=== PATIENT | male | born 1990 | race Caucasian/White ===

== ENCOUNTER 2021-06-26 21:37 | Emergency (ER) ==
[~2021-06-26] VITALS: Ht 182.9 cm; Wt 83.6 kg
== END 2021-06-26 22:38 | disposition left against medical advice (07) ==
LOC: COL.ER 21:37
DX: R07.0 Pain in throat (principal)

== ENCOUNTER 2021-07-24 11:43 | Emergency (ER) | payer OTHER ==
[~2021-07-24] VITALS: Ht 182.9 cm; Wt 81.8 kg
[2021-07-24 11:46] VITALS: TEMP 98.2
[2021-07-24 12:10] LABS: BASO % 0.4 % (0.0-2.0); EOS # 0.1 (0.0-0.7); EOS % 0.9 % (0-4.0); GRAN # 6.8 (1.4-6.5); GRAN % 71.3 % (42.2-75.2); HEMATOCRIT 44.8 % (42.0-52.0); HEMOGLOBIN 15.4 g/dl (13.5-18.0); LYMPH # 1.9 (1.2-3.4); LYMPH % 20.4 % (20.0-51.0); MEAN CELL VOLUME 94 fl (80.0-100.0); MEAN CORPUSCULAR HEMOGLOBIN 32 pg (27.0-31.0); MEAN CORPUSCULAR HGB CONC 34 g/dl (33.0-37.0); MEAN PLATELET VOLUME 11.1 fl (7.4-10.4); MONO # 0.6 (0.1-0.6); MONO % 6.6 % (1.7-9.3); PLATELET COUNT 249 K/mm3 (130-400); RED BLOOD COUNT 4.78 M/mm3 (4.20-5.60); REDCELL DISTRIBUTION WIDTH-CV 12.4 % (11.5-14.5)
[2021-07-24 12:18] LABS: ALANINE AMINOTRANSFERASE 15 U/L (4-49); ALBUMIN 4.7 gm/dL (3.5-5.0); ALCOHOL(ethanol),MEDICAL < 10 mg/dL; ALKALINE PHOSPHATASE 91 U/L (50-136); ANION GAP 7 mmol/L (7-16); AST,SGOT 25 U/L (15-37); BILIRUBIN,TOTAL 0.6 mg/dL (0.0-1.0); BLOOD UREA NITROGEN 11 mg/dL (9-20); CALCIUM 9.6 mg/dL (8.4-10.2); CARBON DIOXIDE 28 mmol/L (22-30); CHLORIDE 106 mmol/L (98-107); CREATININE, serum 0.82 (0.66-1.25); GLUCOSE 95 mg/dL (74-106); POTASSIUM 4.5 mmol/L (3.4-5.0); SODIUM 141 mmol/L (137-145); TOTAL PROTEIN 7.6 gm/dL (6.4-8.2)
[2021-07-24 13:59] VITALS: BP 101/52; PULSE 57
== END 2021-07-24 14:06 | disposition home or self-care (01) ==
LOC: COL.ER 11:43
PROVIDERS: Emergency Medicine
DX: R41.82 Altered mental status, unspecified (principal)
CPT/HCPCS: J1953; J2060; J7030

== ENCOUNTER 2021-07-25 12:30 | Observation (INO) | payer OTHER ==
[2021-07-25] VITALS (291 sets, daily range): BP systolic 132–138; BP diastolic 64–80; PULSE 74–84; TEMP 98–98.7; O2SAT 92–100
[~2021-07-25] VITALS: Ht 182.9 cm; Wt 73.8 kg
[2021-07-25 12:43] LABS: BASO # 0.1 (0.0-0.2); BASO % 0.7 % (0.0-2.0); EOS # 0.1 (0.0-0.7); GRAN # 4.5 (1.4-6.5); GRAN % 59.2 % (42.2-75.2); HEMATOCRIT 42.8 % (42.0-52.0); HEMOGLOBIN 14.8 g/dl (13.5-18.0); LYMPH # 2.3 (1.2-3.4); LYMPH % 30.5 % (20.0-51.0); MEAN CELL VOLUME 92 fl (80.0-100.0); MEAN CORPUSCULAR HEMOGLOBIN 32 pg (27.0-31.0); MEAN CORPUSCULAR HGB CONC 35 g/dl (33.0-37.0); MONO # 0.6 (0.1-0.6); MONO % 8.3 % (1.7-9.3); PLATELET COUNT 243 K/mm3 (130-400); RED BLOOD COUNT 4.68 M/mm3 (4.20-5.60); REDCELL DISTRIBUTION WIDTH-CV 12.6 % (11.5-14.5)
[2021-07-25 12:49] LABS: COLLECTION METHOD CATHETER
[2021-07-25 12:52] LABS: ALBUMIN 4.6 gm/dL (3.5-5.0); BILIRUBIN,TOTAL 0.4 mg/dL (0.0-1.0); CALCIUM 9.3 mg/dL (8.4-10.2); CREATININE, serum 0.85 (0.66-1.25); POTASSIUM 4.2 mmol/L (3.4-5.0); TOTAL PROTEIN 7.3 gm/dL (6.4-8.2)
[2021-07-25 12:58] LABS: PH 5 (5-8); SQUAMOUS EPITHELIAL 0-2 /hpf; URINE APPEARANCE Clear; URINE BACTERIA Rare /hpf; URINE BILIRUBIN Negative (NEGATIVE); URINE BLOOD 1+ (NEGATIVE); URINE COLOR Straw; URINE GLUCOSE Negative (NEGATIVE); URINE KETONE Negative (NEGATIVE); URINE LEUKOCYTE ESTERASE Negative (NEGATIVE); URINE NITRATE Negative (NEGATIVE); URINE PROTEIN(semi-quant) Negative (NEGATIVE); URINE RBC 0-2 /hpf; URINE UROBILINOGEN Negative (NEGATIVE)
[2021-07-25 12:59] LABS: ARTERIAL BLD GAS O2 SATURATION 96.6 % (92-100); ARTERIAL BLD GAS TCO2 CT 24.5; ARTERIAL BLOOD GAS BASE EXCESS -1.2 (-2-2); ARTERIAL BLOOD GAS HCO3 23.3 meq/L (22-26); ARTERIAL BLOOD GAS PCO2 38.7 mmHg (35-45); ARTERIAL BLOOD GAS PO2 83.4 mmHg (80-100)
[2021-07-25 13:06] LABS: TRICYCLIC ANTIDEPRESS URINE NEGATIVE
--- NOTE | 2021-07-25 18:06 | NUR ---
AT 1744 PATIENT STARTED HAVING SEIZURE ACTIVITY, NON EPILEPTIC SEIZURE. PATIENT WAS PLACED ON HIS RIGHT LATERAL SIDE AND PLACED FLAT IN THE BED. AT 1747 2 MG ATIVAN VIA PERIPHERAL IV LEFT FOREARM WAS GIVEN. AT 1750 THE PROFESSIONAL DEVELOPMENT DIRECTOR HOSPITALIST WAS NOTIFIED. AT 1751 THE PATIENT STARTED TO ORIENTATE AND FOLLOW COMMANDS. PATIENT DID NOT KNOW THAT HE HAD SEIZURE ACTIVITY. PATIENT IS AGAIN RESTING COMFRTABLY IN THE BED, WILL CONTINUE TO MONITOR
--- NOTE | 2021-07-25 19:00 | NUR ---
PT C/O RESTLESS LEGS AND THE BACK PARTS OF BILATERAL THIGHS ARE ACHING AND REALL BOTHERING HIM. WARM BLANKET PROVIDED. SPOKE TO CORI LINDA AND PROVIDER STATES WILL PLACE ORDERS FOR SOMETHING TO HELP HIS LEGS OUT. AWAITING NEW ORDER. YOUNG DAVID COMING ON SHIFT AWARE TO MONITOR FOR ORDERS.
[2021-07-26] VITALS (465 sets, daily range): BP systolic 114–150; BP diastolic 64–78; PULSE 44–84; TEMP 97.6–98.9; O2SAT 69–100
[2021-07-26 05:05] LABS: BASO # 0.1 (0.0-0.2); BASO % 0.9 % (0.0-2.0); EOS # 0.2 (0.0-0.7); EOS % 3.4 % (0-4.0); GRAN # 2.5 (1.4-6.5); GRAN % 42.8 % (42.2-75.2); HEMATOCRIT 40.9 % (42.0-52.0); HEMOGLOBIN 14.1 g/dl (13.5-18.0); LYMPH # 2.4 (1.2-3.4); LYMPH % 41.1 % (20.0-51.0); MEAN CELL VOLUME 92 fl (80.0-100.0); MEAN CORPUSCULAR HEMOGLOBIN 32 pg (27.0-31.0); MEAN CORPUSCULAR HGB CONC 35 g/dl (33.0-37.0); MEAN PLATELET VOLUME 11.1 fl (7.4-10.4); MONO # 0.7 (0.1-0.6); MONO % 11.6 % (1.7-9.3); PLATELET COUNT 248 K/mm3 (130-400); RED BLOOD COUNT 4.44 M/mm3 (4.20-5.60); REDCELL DISTRIBUTION WIDTH-CV 12.6 % (11.5-14.5)
[2021-07-26 05:14] LABS: CALCIUM 9.4 mg/dL (8.4-10.2); CREATININE, serum 0.85 (0.66-1.25)
--- NOTE | 2021-07-26 07:00 | NUR ---
RECEIVED REPORT FROM YOUNG DAVID. PT RESTING IN BED ON RA. VSS. CALL LIGHT WITHIN REACH. POLICE OFFICE REMAINS AT BEDSIDE.
--- NOTE | 2021-07-26 09:00 | NUR ---
SPOKE TO DR MARTIN ABOUT EEG RESULTS AND PT HAVING SEIZURE DURING PROCEDURE BUT WAS ABLE TO RESOLVE ON HIS OWN. VSS DURING. PROVIDER REQUESTS PROLACTIN LEVEL NOW. SEE RESULTS. VSS. BREAKFAST TRAY PROVIDED TO PT. CROP PEST CONTROL SPECIALIST REMAINS AT BEDSIDE.
--- NOTE | 2021-07-26 09:23 | NUR ---
PATIENT BEGAN HAVING SEIZURE DURING PHOTONIC STAGE OF EEG STARTING AT 0847 AND ENDING IS M3 AT 0852. RN AND WAS NOTIFIED OF SEIZURE.
--- NOTE | 2021-07-26 15:56 | NUR ---
Patient is in custody at the [facility]. Officer is present at bedside and the patient will return to the [facility] once discharged.
--- NOTE | 2021-07-26 17:17 | NUR ---
REPORT CALLED TO YOUNG PINEDA. PT TRANSFERRED VIA WC ON RA. REMAINS IN POLICE CUSTODY. BELONGINGS TAKEN OUT OF ICU'S LOCKED CABINET AND SENT UPSTAIRS WITH PT AND GIVEN TO YOUNG PINEDA.
--- NOTE | 2021-07-26 18:09 | NUR ---
PT ARRIVED TO FLOOR, PLEASANT, AOX3, COULD NOT NAME PRESIDENT BUT COULD NAME CURRENT MONTH AND YEAR. 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 REQUESTED SPRITE AND WATER, BEVERAGES BROUGHT IN TO PT, PT PICKED SCAB ON NOSE AND TISSUES BROUGHT IN FOR PT. EDUCATED IT WOULD BLEED LONGER THAN NORMAL DUE TO BLOOD THINNERS. NO OTHER NEEDS
--- NOTE | 2021-07-26 20:27 | NUR ---
PT RESTING IN BED. EVENING MEDICATIONS GIVEN. PT ALERT AND ORIENTED. STATES HE HAS NO PAIN OTHER THAN A HEADACHE. PT ALSO REPORT FEELING DIZZY AND DROWSY. PT HAD A SCAB TO HIS NOSE. PT DENIES ANY NEEDS AT THIS TIME. WILL CONTINUE TO MONITOR.
[2021-07-27 04:00] VITALS: BP 109/54; PULSE 56; TEMP 97.8
--- NOTE | 2021-07-27 07:16 | NUR ---
RECEIVED REPORT FROM YOUNG ARTHUR. PT AWAKE/ALERT IN BED, EATING BREAKFAST. PT COMPLAINED OF MILD HEADACHE AND BACK PAIN; TYLENOL REQUESTED AND ADMINISTERED. PT DENIES ANY OTHER NEEDS AT THIS TIME. CALL BOWEN IN REACH.
[2021-07-27 07:25] LABS: BASO # 0.1 (0.0-0.2); BASO % 0.9 % (0.0-2.0); EOS # 0.2 (0.0-0.7); EOS % 3.1 % (0-4.0); GRAN % 51.7 % (42.2-75.2); HEMATOCRIT 41.7 % (42.0-52.0); HEMOGLOBIN 14.4 g/dl (13.5-18.0); LYMPH # 1.9 (1.2-3.4); LYMPH % 33.1 % (20.0-51.0); MEAN CELL VOLUME 93 fl (80.0-100.0); MEAN CORPUSCULAR HEMOGLOBIN 32 pg (27.0-31.0); MEAN CORPUSCULAR HGB CONC 35 g/dl (33.0-37.0); MEAN PLATELET VOLUME 11.7 fl (7.4-10.4); MONO # 0.6 (0.1-0.6); PLATELET COUNT 231 K/mm3 (130-400); RED BLOOD COUNT 4.48 M/mm3 (4.20-5.60); REDCELL DISTRIBUTION WIDTH-CV 12.7 % (11.5-14.5)
[2021-07-27 07:41] LABS: CALCIUM 9.4 mg/dL (8.4-10.2); CREATININE, serum 0.81 (0.66-1.25)
[2021-07-27 08:29] VITALS: BP 118/51; PULSE 67; TEMP 98.3
[2021-07-27] MEDS ORDERED: SEROQUEL 2525 MG/TAB PO (12:39)
[2021-07-27] MEDS ORDERED: KEPPRA1000 MG PO (12:39)
--- NOTE | 2021-07-27 14:23 | NUR ---
WENT OVER DISCHARGE INSTRUCTIONS WITH PT. QUESTIONS INVITED AND ANSWERED. L WRIST IV AND L FOREARM IV REMOVED. [facility] [employer] [facility].
== END 2021-07-27 14:30 ==
LOC: COL.ER 12:30 → ICU 14:19 → MEDICAL 07-26 15:41 → ICU 07-26 15:41 → MEDICAL 07-26 15:41 → ICU 07-26 15:42 → MEDICAL 07-26 17:58
PROVIDERS: Emergency Medicine; Internal Medicine; ADMIT Student in an Organized Health Care Education/Training Program
DX: R56.9 Unspecified convulsions (principal); F31.9 Bipolar disorder, unspecified; F20.9 Schizophrenia, unspecified; F17.210 Nicotine dependence, cigarettes, uncomplicated; Z20.822 Contact with and (suspected) exposure to COVID-19
CPT/HCPCS: OP; 99232-AI; 99239; G0378; J1650; J1953; J2060

== ENCOUNTER 2021-07-30 12:31 | Emergency (ER) | payer OTHER ==
[~2021-07-30] VITALS: Ht 182.9 cm; Wt 65.9 kg
[~2021-07-30 12:31] MED LIST: KEPPRA1000 MG PO; SEROQUEL 2525 MG/TAB PO
[2021-07-30 12:32] VITALS: TEMP 98.5
[2021-07-30 13:08] LABS: BASO % 0.4 % (0.0-2.0); EOS # 0.1 (0.0-0.7); GRAN # 6.7 (1.4-6.5); GRAN % 71.1 % (42.2-75.2); HEMATOCRIT 41.3 % (42.0-52.0); HEMOGLOBIN 14.4 g/dl (13.5-18.0); LYMPH % 20.9 % (20.0-51.0); MEAN CELL VOLUME 92 fl (80.0-100.0); MEAN CORPUSCULAR HEMOGLOBIN 32 pg (27.0-31.0); MEAN CORPUSCULAR HGB CONC 35 g/dl (33.0-37.0); MEAN PLATELET VOLUME 11.5 fl (7.4-10.4); MONO # 0.6 (0.1-0.6); MONO % 6.3 % (1.7-9.3); PLATELET COUNT 209 K/mm3 (130-400); REDCELL DISTRIBUTION WIDTH-CV 12.7 % (11.5-14.5)
[2021-07-30 13:19] LABS: ALBUMIN 4.7 gm/dL (3.5-5.0); BILIRUBIN,TOTAL 0.4 mg/dL (0.0-1.0); CALCIUM 9.3 mg/dL (8.4-10.2); CREATININE, serum 0.93 (0.66-1.25); POTASSIUM 4.3 mmol/L (3.4-5.0); TOTAL PROTEIN 7.6 gm/dL (6.4-8.2)
[2021-07-30 13:36] LABS: PROLACTIN 23.2 ng/mL (3.7-17.9)
[2021-07-30] MEDS ORDERED: DEPAKOTE ER 50500 MG PO (13:54)
[2021-07-30 14:55] VITALS: BP 113/67; PULSE 62
== END 2021-07-30 14:57 | disposition home or self-care (01) ==
LOC: COL.ER 12:31
PROVIDERS: Nurse Practitioner
DX: G40.909 Epilepsy, unspecified, not intractable, without status epilepticus (principal); F31.9 Bipolar disorder, unspecified; F20.9 Schizophrenia, unspecified; Z79.899 Other long term (current) drug therapy

== ENCOUNTER 2021-08-09 21:17 | Emergency (ER) | payer OTHER ==
[~2021-08-09] VITALS: Ht 182.9 cm; Wt 78.6 kg
[~2021-08-09 21:17] MED LIST changes: +DEPAKOTE ER 50500 MG PO
[2021-08-09 21:19] VITALS: TEMP 98.1
[2021-08-09 22:06] LABS: BASO % 0.6 % (0.0-2.0); EOS # 0.2 (0.0-0.7); EOS % 3.5 % (0-4.0); GRAN # 3.2 (1.4-6.5); HEMATOCRIT 41.9 % (42.0-52.0); HEMOGLOBIN 14.5 g/dl (13.5-18.0); LYMPH # 2.9 (1.2-3.4); LYMPH % 41.4 % (20.0-51.0); MEAN CELL VOLUME 92 fl (80.0-100.0); MEAN CORPUSCULAR HEMOGLOBIN 32 pg (27.0-31.0); MEAN CORPUSCULAR HGB CONC 35 g/dl (33.0-37.0); MEAN PLATELET VOLUME 11.6 fl (7.4-10.4); MONO # 0.6 (0.1-0.6); MONO % 8.4 % (1.7-9.3); PLATELET COUNT 194 K/mm3 (130-400); RED BLOOD COUNT 4.57 M/mm3 (4.20-5.60); REDCELL DISTRIBUTION WIDTH-CV 12.3 % (11.5-14.5)
[2021-08-09 22:16] LABS: ALBUMIN 4.6 gm/dL (3.5-5.0); BILIRUBIN,TOTAL 0.5 mg/dL (0.0-1.0); CALCIUM 9.4 mg/dL (8.4-10.2); CREATININE, serum 0.94 (0.66-1.25); POTASSIUM 4.2 mmol/L (3.4-5.0); TOTAL PROTEIN 7.5 gm/dL (6.4-8.2)
[2021-08-09 22:32] LABS: PROLACTIN 26.3 ng/mL (3.7-17.9)
[2021-08-10 01:16] VITALS: BP 145/75; PULSE 82
== END 2021-08-09 23:15 | disposition home or self-care (01) ==
LOC: COL.ER 21:17
PROVIDERS: Emergency Medicine
DX: G40.909 Epilepsy, unspecified, not intractable, without status epilepticus (principal); F20.9 Schizophrenia, unspecified; F31.9 Bipolar disorder, unspecified; F17.210 Nicotine dependence, cigarettes, uncomplicated; Z79.899 Other long term (current) drug therapy

== ENCOUNTER 2021-08-10 12:24 | Emergency (ER) | payer OTHER ==
[~2021-08-10] VITALS: Ht 182.9 cm; Wt 78.6 kg
[2021-08-10 13:19] VITALS: BP 131/79; PULSE 102; TEMP 97.6
== END 2021-08-10 13:20 | disposition home or self-care (01) ==
LOC: COL.ER 12:24
DX: R25.8 Other abnormal involuntary movements (principal); Z79.899 Other long term (current) drug therapy

== ENCOUNTER 2021-08-28 19:13 | Emergency (ER) | payer OTHER ==
[~2021-08-28] VITALS: Ht 182.9 cm; Wt 185.0 kg
[2021-08-28 19:16] VITALS: BP 139/86; PULSE 92; TEMP 98.1
== END 2021-08-28 19:40 | disposition home or self-care (01) ==
LOC: COL.ER 19:13
DX: G40.909 Epilepsy, unspecified, not intractable, without status epilepticus (principal); F31.9 Bipolar disorder, unspecified; Z79.899 Other long term (current) drug therapy

== ENCOUNTER 2021-08-30 19:02 | Emergency (ER) | payer OTHER ==
[~2021-08-30] VITALS: Ht 182.9 cm; Wt 81.8 kg
[2021-08-30 19:04] VITALS: TEMP 98.1
[2021-08-30 20:10] VITALS: BP 114/70; PULSE 76
== END 2021-08-30 20:10 | disposition home or self-care (01) ==
LOC: COL.ER 19:02
DX: G40.909 Epilepsy, unspecified, not intractable, without status epilepticus (principal); F31.9 Bipolar disorder, unspecified; Z79.899 Other long term (current) drug therapy

== ENCOUNTER 2021-09-01 01:54 | Emergency (ER) | payer OTHER ==
[~2021-09-01] VITALS: Ht 175.3 cm; Wt 68.2 kg
[2021-09-01 02:54] LABS: BASO # 0.1 K/mm3 (0.0-0.2); BASO % 0.9 % (0.0-2.0); EOS # 0.1 K/mm3 (0.0-0.7); EOS % 1.1 % (0-4.0); GRAN # 3.8 K/mm3 (1.4-6.5); GRAN % 47.1 % (42.2-75.2); HEMATOCRIT 43.5 % (42.0-52.0); HEMOGLOBIN 14.7 g/dl (13.5-18.0); LYMPH # 3.2 K/mm3 (1.2-3.4); LYMPH % 39.6 % (20.0-51.0); MEAN CELL VOLUME 93 fl (80.0-100.0); MEAN CORPUSCULAR HEMOGLOBIN 32 pg (27.0-31.0); MEAN CORPUSCULAR HGB CONC 34 g/dl (33.0-37.0); MEAN PLATELET VOLUME 11.9 fl (7.4-10.4); MONO # 0.9 K/mm3 (0.1-0.6); MONO % 11.2 % (1.7-9.3); PLATELET COUNT 241 K/mm3 (130-400); RED BLOOD COUNT 4.66 M/mm3 (4.20-5.60); REDCELL DISTRIBUTION WIDTH-CV 12.6 % (11.5-14.5)
[2021-09-01 03:08] LABS: ALBUMIN 4.7 gm/dL (3.5-5.0); BILIRUBIN,TOTAL 0.3 mg/dL (0.2-1.2); CALCIUM 10.1 mg/dL (8.4-10.2); CREATININE, serum 1.16 mg/dL (0.72-1.25); POTASSIUM 4.3 mmol/L (3.5-4.5)
[2021-09-01 03:48] VITALS: BP 105/61; PULSE 88; TEMP 98.6
== END 2021-09-01 03:55 | disposition home or self-care (01) ==
LOC: COL.ER 01:54
PROVIDERS: Student in an Organized Health Care Education/Training Program
DX: R56.9 Unspecified convulsions (principal); F31.9 Bipolar disorder, unspecified; F20.9 Schizophrenia, unspecified; Z79.899 Other long term (current) drug therapy
CPT/HCPCS: J1953; J2060; J7030

== ENCOUNTER 2021-09-01 23:06 | Emergency (ER) | payer OTHER ==
[~2021-09-01] VITALS: Ht 175.3 cm; Wt 72.7 kg
[2021-09-02 00:40] VITALS: BP 102/61; PULSE 80; TEMP 97.7
== END 2021-09-02 01:00 | disposition home or self-care (01) ==
LOC: COL.ER 23:06
DX: G40.909 Epilepsy, unspecified, not intractable, without status epilepticus (principal); F31.9 Bipolar disorder, unspecified; F20.9 Schizophrenia, unspecified; Z79.899 Other long term (current) drug therapy
CPT/HCPCS: J1790

== ENCOUNTER 2021-09-02 19:32 | Emergency (ER) | payer OTHER ==
[~2021-09-02] VITALS: Ht 175.3 cm; Wt 72.7 kg
[2021-09-02 21:30] VITALS: BP 104/52; PULSE 70; TEMP 98
== END 2021-09-02 21:30 ==
LOC: COL.ER 19:32
DX: G40.909 Epilepsy, unspecified, not intractable, without status epilepticus (principal); F31.9 Bipolar disorder, unspecified; F20.9 Schizophrenia, unspecified; Z79.899 Other long term (current) drug therapy
CPT/HCPCS: J1790

== ENCOUNTER 2021-09-06 01:02 | Emergency (ER) | payer OTHER ==
[~2021-09-06] VITALS: Ht 5.1 cm; Wt 81.8 kg
[2021-09-06 01:10] VITALS: TEMP 99.8
[2021-09-06] MEDS ORDERED: RISPERDAL 1M1 MG/TAB PO (01:15)
[2021-09-06 02:45] VITALS: BP 120/61; PULSE 80
== END 2021-09-06 02:45 | disposition home or self-care (01) ==
LOC: COL.ER 01:02
DX: R25.8 Other abnormal involuntary movements (principal)
CPT/HCPCS: J1790